=== PATIENT | male | born 1965 | race Caucasian/White ===

== ENCOUNTER 2020-03-20 12:36 | Emergency (ER) | payer OTHER ==
--- NOTE | 2020-03-20 13:04 | ERPHSYRPT ---
- History of Present Illness Time Seen by Provider: 03/20/20 12:50 Source: patient, family Exam Limitations: no limitations Patient Subjective Stated Complaint: fall off ladder on Monday Triage Nursing Assessment: pt to ED c/o R lower back pain after mechanical fall off ladder approx 6 ft high. denies LOC, denies blood thinners. was leaning and ladder tipped underneath him. rates 5/10 pain and worse when changing position. pain does radiates to R leg at times. Physician History: This is a 54-year-old white male who was on a ladder 3 days ago cleaning off his gutters when he fell off the gutters approximately 6 feet onto his back. This occurred 3 days ago. He did not have any loss of consciousness. He denies head neck injury or pain. The patient's pain has not improved. He has been using plain Tylenol. He has no known drug allergies and he takes no chronic pain medicine. He denies abdominal pain. He has had no hematuria. He has no chest pain and he is not short of breath Occurred: days ago (3) Injuries/Pain Location: back, lower, middle Loss of Consciousness: no loss of consciousness Quality: aching Severity of Pain-Max: moderate Severity of Pain-Current: moderate Modifying Factors: Improves With: movement Associated Symptoms (Fall): back pain, No abdominal pain, No chest pain, No extremity injury, No headache, No neck pain Allergies/Adverse Reactions: azithromycin Allergy (Verified 03/20/20 12:51) Hx Tetanus, Diphtheria Vaccination/Date Given: Yes Hx Influenza Vaccination/Date Given: Yes Hx Pneumococcal Vaccination/Date Given: No Immunizations Up to Date: Yes Travel Risk - International Travel Have you traveled outside of the country in past 3 weeks: No - Coronavirus Screening Are you exhibiting any of the following symptoms?: No Close contact with a COVID-19 positive Pt in past 14-21 Days: No - Review of Systems Constitutional: No Symptoms Eyes: No Symptoms Ears, Nose, & Throat: No Symptoms Respiratory: No Symptoms Cardiac: No Symptoms Abdominal/Gastrointestinal: No Symptoms Genitourinary Symptoms: No Symptoms Musculoskeletal: Back Pain, Fall, Injury Skin: No Symptoms Neurological: No Symptoms Psychological: No Symptoms Endocrine: No Symptoms Hematologic/Lymphatic: No Symptoms Immunological/Allergic: No Symptoms All Other Systems: Reviewed and Negative - Past Medical History Pertinent Past Medical History: No Neurological History: No Pertinent History ENT History: No Pertinent History Cardiac History: No Pertinent History Respiratory History: No Pertinent History Endocrine Medical History: No Pertinent History Musculoskeletal History: No Pertinent History GI Medical History: No Pertinent History History: No Pertinent History Psycho-Social History: No Pertinent History Male Reproductive Disorders: No Pertinent History - Past Surgical History Past Surgical History: Yes Neuro Surgical History: No Pertinent History Cardiac: No Pertinent History Respiratory: No Pertinent History Gastrointestinal: No Pertinent History Genitourinary: No Pertinent History Musculoskeletal: Orthopedic Surgery Male Surgical History: No Pertinent History Other Surgical History: R arm x 2. L knee replacement - Social History Smoking Status: Never smoker Exposure to second hand smoke: No Drug Use: none Patient Lives Alone: No - Nursing Vital Signs Nursing Vital Signs: Initial Vital Signs Pulse Rate 66 03/20/20 13:41 Respiratory Rate 16 03/20/20 13:41 Blood Pressure 120/80 03/20/20 13:41 O2 Sat by Pulse Oximetry 93 L 03/20/20 13:41 Pain Scale Pain Intensity 0 - [place]indy Coma Score Best Eye Response ([place]): (4) open spontaneously Best Verbal Response ([place]): (5) oriented Best Motor Response ([place]): (6) obeys commands [place] Total: 15 - Physical Exam General Appearance: no apparent distress, alert Head Injury: no evidence of injury Eye Exam: PERRL/EOMI ENT Exam: airway nml, nml ext.inspection, hearing grossly normal Neck Exam: supple, trachea midline, full range of motion, normal alignment, normal inspection Respiratory/Chest Exam: normal breath sounds, No chest tenderness, No respiratory distress, No ecchymosis, No crepitus Cardiovascular Exam: normal heart sounds, regular rate/rhythm Gastrointestinal Exam: soft, normal bowel sounds, No tenderness, No guarding, No rebound Back Exam: normal inspection, normal range of motion, muscle spasm, No CVA tenderness, No vertebral tenderness Extremity Exam: normal inspection, normal range of motion, pelvis stable Neurologic Exam: alert, oriented x 3, cooperative, wrapper caser II-XII nml as tested, normal mood/affect, nml cerebellar function, sensation nml Skin Exam: normal color, warm, dry SpO2 Interpretation: normal O2 Delivery: Room Air - Course Nursing assessment & vital signs reviewed: Yes Ordered Tests: Active Orders 24 hr Category Date Time Status LUMBAR SPINE W/O [CT] Stat Exams 03/20/20 13:05 Completed THORACIC SPINE W/O CONTRAST [CT] Stat Exams 03/20/20 13:05 Completed - Progress Progress: unchanged, pain not gone completely, re-examined Progress Note: 03/20/20 13:55 CAT scan of the thoracic spine shows no acute compression fracture or subluxation. CAT scan of the lumbar spine shows no acute compression fracture or subluxation. Counseled pt/family regarding: diagnosis, need for follow-up, rad results - Departure Departure Disposition: Home Clinical Impression: Fall with injury, Back pain Condition: Stable Critical Care Time: No Referrals: [facility] [Primary Care Provider] - Additional Instructions: Add ibuprofen 600 mg orally with food if not allergic 3 times a day for 5 days. Follow-up with your primary care physician for persistent pain or worsening pain. Prescriptions: Oxycodone HCl/Acetaminophen [Percocet 5-325 mg Tablet] 1 each PO Q8H PRN PRN #10 tablet MDD 3 PRN Reason: Pain Cyclobenzaprine HCl 10 mg [Cyclobenzaprine 10 MG] 10 mg PO TID #10 tablet
--- NOTE | 2020-03-20 13:45 | XRAY ---
Indication: Pain following fall from ladder. Multiple contiguous axial images obtained through the lumbar spine. Sagittal and coronal reformatted images obtained. Comparison: None CT thoracic spine reported separately. Axial images negative for acute fracture, suspicious bony lesions, or spinal canal stenosis. Minimal multilevel anterior endplate spurring. Disks are grossly unremarkable. Facets are symmetric. Sagittal and coronal reformatted images demonstrates normal lumbar alignment with vertebral body heights/disc spaces maintained. No acute compression fracture or subluxation. Visualized noncontrasted soft tissues demonstrates nonobstructing right upper renal punctate calculus/calcification and 1.8 cm right mid renal cyst cortical cyst. Impression: 1. Minimal multilevel endplate spurring, nonobstructing right renal punctate calculus/calcification, and right renal cyst. 2. Remaining CT lumbar spine is negative.
--- NOTE | 2020-03-20 13:46 | XRAY ---
Indication: Pain following fall from ladder. Multiple contiguous axial images obtained through the thoracic spine. Sagittal and coronal reformatted images obtained. Comparison: None Axial images negative for acute fracture, suspicious bony lesions, or spinal canal stenosis. Minimal multilevel anterior endplate spurring. Sagittal and coronal reformatted images demonstrates normal thoracic alignment with vertebral body heights/disc spaces maintained. Tiny multilevel mid to lower thoracic Schmorl nodes. No acute compression fracture or subluxation. Visualized noncontrasted soft tissues unremarkable with incidental subcarinal/right perihilar calcified nodes and hepatic/splenic calcified granulomas. CT lumbar spine reported separately. Impression: 1. Minimal multilevel endplate spurring, tiny multilevel Schmorl nodes, and old granulomatous disease. 2. Remaining CT thoracic spine is negative.
[2020-03-20] MEDS ORDERED: ZOFRAN ODT 4 MG PO ONE (13:59)
[2020-03-20] MEDS ORDERED: Hydromorphone 1 mg/ml Injection IM ONE (13:59)
[2020-03-20] MEDS ORDERED: TORAdol 30 mg Injection IM ONE (13:59)
[2020-03-20] MEDS ORDERED: TORAdol 30 mg Injection ONE ×2 (14:04→14:11)
[2020-03-20] MEDS ORDERED: ZOFRAN ODT 4 MG ONE (14:04)
[2020-03-20] MEDS ORDERED: Hydromorphone 1 mg/ml Injection ONE (14:05)
[2020-03-20 14:25] VITALS: BP 125/92; PULSE 68; O2SAT 94
== END 2020-03-20 14:35 | disposition home or self-care (01) ==
LOC: ED 12:36
DX: M54.5 Low back pain (principal); M54.6 Pain in thoracic spine; W11.XXXA Fall on and from ladder, initial encounter; Y93.89 Activity, other specified; Y92.89 Other specified places as the place of occurrence of the external cause; Z96.652 Presence of left artificial knee joint
CPT/HCPCS: 72128; 72131; 96372; 99284; J1170; J1885; Q0162

== ENCOUNTER 2020-06-11 03:25 | Emergency (ER) | payer OTHER ==
[2020-06-11] MEDS ORDERED: Sodium Chloride 0.9% 1000 ML 1,000 ML ONE (03:47)
[2020-06-11] MEDS ORDERED: Sodium Chloride 0.9% 1000 ML 1,000 ML IV STA (03:48)
[2020-06-11] MEDS ORDERED: Zofran 4 MG/2 ML VIAL IV ONE (04:01)
[2020-06-11] MEDS ORDERED: Reglan 10 MG/2 ML IV ONE (04:06)
[2020-06-11] MEDS ORDERED: Zofran 4 MG/2 ML VIAL ONE (04:06)
[2020-06-11] MEDS ORDERED: BENADRYL 50 MG/ML IV ONE (04:06)
[2020-06-11] MEDS ORDERED: TORAdol 30 mg Injection IV ONE (04:06)
[2020-06-11] MEDS ORDERED: TORAdol 30 mg Injection ONE (04:06)
[2020-06-11] MEDS ORDERED: BENADRYL 50 MG/ML ONE (04:06)
[2020-06-11] MEDS ORDERED: Reglan 10 MG/2 ML ONE (04:06)
--- NOTE | 2020-06-11 04:08 | ERPHSYRPT ---
- History of Present Illness Time Seen by Provider: 06/11/20 03:59 Source: patient Exam Limitations: no limitations Patient Subjective Stated Complaint: headache, nausea, body aches, temp, decreased urine output Triage Nursing Assessment: Pt c/o headache, nausea, body aches, temp off and on and decreased urine output. Pt started feeling bad on 06/04/20 and got tested, pt was called on 06/08/20 and covid test was positive. Lungs clear, heart tones reg, abd soft with active bs x4 quad. Pt denies any vomiting or diarrhea, pt denies chest pain or sob. Allergies/Adverse Reactions: azithromycin Allergy (Verified 06/11/20 03:44) Home Medications: Promethazine HCl 12.5 mg PO Q6H PRN PRN 06/11/20 [History] Hx Tetanus, Diphtheria Vaccination/Date Given: Yes Hx Influenza Vaccination/Date Given: No Hx Pneumococcal Vaccination/Date Given: No Immunizations Up to Date: Yes Travel Risk - International Travel Have you traveled outside of the country in past 3 weeks: No - Coronavirus Screening Are you exhibiting any of the following symptoms?: Yes Symptoms: Fever, Headaches/Body Aches/Fatigue Close contact with a COVID-19 positive Pt in past 14-21 Days: Yes - Past Medical History Pertinent Past Medical History: No Neurological History: No Pertinent History ENT History: No Pertinent History Cardiac History: No Pertinent History Respiratory History: No Pertinent History Endocrine Medical History: No Pertinent History Musculoskeletal History: No Pertinent History GI Medical History: No Pertinent History History: No Pertinent History Psycho-Social History: No Pertinent History Male Reproductive Disorders: No Pertinent History - Past Surgical History Past Surgical History: Yes Neuro Surgical History: No Pertinent History Cardiac: No Pertinent History Respiratory: No Pertinent History Gastrointestinal: No Pertinent History Genitourinary: No Pertinent History Musculoskeletal: Orthopedic Surgery Male Surgical History: No Pertinent History Other Surgical History: R arm x 2. L knee replacement - Social History Smoking Status: Never smoker Exposure to second hand smoke: No Drug Use: none Patient Lives Alone: No - Nursing Vital Signs Nursing Vital Signs: Initial Vital Signs Temperature 98.2 F 06/11/20 03:37 Pulse Rate 84 06/11/20 03:37 Respiratory Rate 18 06/11/20 03:37 Blood Pressure 133/103 06/11/20 03:37 O2 Sat by Pulse Oximetry 96 06/11/20 03:37 Pain Scale Pain Intensity 3 - Physical Exam SpO2: 96 Ordered Tests: Active Orders 24 hr Category Date Time Status CBC W DIFF Stat Lab 06/11/20 03:50 Completed CMP Stat Lab 06/11/20 03:50 Completed Lactic Acid Stat Lab 06/11/20 04:00 Completed Manual Differential NC Stat Lab 06/11/20 03:50 Completed Medication Summary Discontinued Medications Generic Name Dose Route Start Last Admin Trade Name Gregorio PRN Reason Stop Dose Admin Diphenhydramine HCl 25 mg 06/11/20 04:06 06/11/20 04:11 Benadryl 50 Mg/Ml IV 06/11/20 04:07 25 mg STAT ONE Administration Diphenhydramine HCl Confirm 06/11/20 04:06 Benadryl 50 Mg/Ml Administered 06/11/20 04:07 Dose 50 mg .ROUTE .STK-MED ONE Sodium Chloride Confirm 06/11/20 03:47 Sodium Chloride 0.9% 1000 Ml Administered 06/11/20 03:48 Dose 1,000 mls @ ud .ROUTE .STK-MED ONE Sodium Chloride 1,000 mls @ 999 mls/hr 06/11/20 03:48 06/11/20 03:50 Sodium Chloride 0.9% 1000 Ml IV 06/11/20 04:48 999 mls/hr .Q1H1M STA Administration Ketorolac Tromethamine 30 mg 06/11/20 04:06 06/11/20 04:10 Toradol 30 Mg Injection IV 06/11/20 04:07 30 mg STAT ONE Administration Ketorolac Tromethamine Confirm 06/11/20 04:06 Toradol 30 Mg Injection Administered 06/11/20 04:07 Dose 30 mg .ROUTE .STK-MED ONE Metoclopramide HCl 10 mg 06/11/20 04:06 06/11/20 04:10 Reglan 10 Mg/2 Ml IV 06/11/20 04:07 10 mg STAT ONE Administration Metoclopramide HCl Confirm 06/11/20 04:06 Reglan 10 Mg/2 Ml Administered 06/11/20 04:07 Dose 10 mg .ROUTE .STK-MED ONE Ondansetron HCl 4 mg 06/11/20 04:01 06/11/20 04:11 Zofran 4 Mg/2 Ml Vial IV 06/11/20 04:02 4 mg STAT ONE Administration Ondansetron HCl Confirm 06/11/20 04:06 Zofran 4 Mg/2 Ml Vial Administered 06/11/20 04:07 Dose 4 mg .ROUTE .STK-MED ONE Lab/Rad Data: Laboratory Result Diagrams 06/11/20 03:50 06/11/20 03:50 Laboratory Results 06/11/20 06/11/20 06/11/20 Range/Units 04:00 03:50 03:50 WBC 4.4 (4.0-10.5) K/mm3 RBC 5.40 (4.1-5.6) M/mm3 Hgb 15.7 (12.5-18.0) gm/dl Hct 46.7 (42-50) % MCV 86.5 (78-100) fl MCH 29.1 (26-32) pg MCHC 33.6 (32-36) g/dl RDW 12.8 (11.5-14.0) % Plt Count 138 L (150-450) K/mm3 MPV 10.6 (7.5-11.0) fl Absolute Granulocytes 2.13 (1.4-6.9) Sodium 139 (137-145) mmol/L Potassium 3.5 (3.5-5.1) mmol/L Chloride 106 (98-107) mmol/L Carbon Dioxide 25 (22-30) mmol/L Anion Gap 11.0 (5-15) MEQ/L BUN 12 (9-20) mg/dL Creatinine 1.09 (0.66-1.25) mg/dL Estimated GFR > 60.0 ML/MIN Glucose 92 (74-106) mg/dL Lactic Acid 1.0 (0.4-2.0) Calcium 8.4 (8.4-10.2) mg/dL Total Bilirubin 0.60 (0.2-1.3) mg/dL AST 30 (17-59) U/L ALT 23 (0-50) U/L Alkaline Phosphatase 67 (38-126) U/L Serum Total Protein 7.0 (6.3-8.2) g/dL Albumin 3.9 (3.5-5.0) g/dL - Progress Progress: improved, re-examined Progress Note: 06/11/20 05:26 Patient is feeling better and headache is almost completely resolved. Blood Culture(s) Obtained: No Antibiotics given: No Counseled pt/family regarding: lab results, diagnosis, need for follow-up - Departure Departure Disposition: Home Clinical Impression: Viral syndrome Headache Qualifiers: Headache type: unspecified Headache chronicity pattern: acute headache Intractability: not intractable Qualified Code(s): R51.9 - Headache, unspecified Condition: Stable Critical Care Time: No Referrals: NONI REED NP [Primary Care Provider] - (1-2 days for reevaluation) Instructions: Headache, Adult (DC) Additional Instructions: Keep yourself well-hydrated. Take Tylenol as needed for headache. Follow-up with your primary care for reevaluation. Take Zofran as needed for nausea vomiting. Return to ER for worsening nausea or if develop vomiting, headache, blurry vision, numbness tingling or focal weakness. Prescriptions: Ondansetron ODT 4 MG [Zofran Odt 4 mg] 4 mg PO Q6H PRN PRN #10 tab.rapdis PRN Reason: Vomiting
[2020-06-11 04:16] LABS: Absolute Neutrophil Ct (ANC) 2.13 (1.4-6.9); Hematocrit 46.7 % (42-50); Hemoglobin 15.7 gm/dl (12.5-18.0); Mean Cell Volume 86.5 fl (78-100); Mean Corpuscular Hemoglobin 29.1 pg (26-32); Mean Corpuscular Hgb Concent. 33.6 g/dl (32-36); Mean Platelet Volume 10.6 fl (7.5-11.0); Platelet Count 138 K/mm3 (150-450); Red Cell Distribution Width 12.8 % (11.5-14.0); White Blood Count 4.4 K/mm3 (4.0-10.5)
[2020-06-11 04:20] LABS: ALBUMIN 3.9 g/dL (3.5-5.0); ALKALINE PHOSPHATASE 67 U/L (38-126); BLOOD UREA NITROGEN 12 mg/dL (9-20); CHLORIDE 106 mmol/L (98-107); Calcium 8.4 mg/dL (8.4-10.2); Carbon Dioxide 25 mmol/L (22-30); Creatinine 1 1.09 mg/dL (0.66-1.25); EST GLOMERULAR FILTRATION RATE > 60.0 ML/MIN; Glucose 92 mg/dL (74-106); Potassium 3.5 mmol/L (3.5-5.1); SGOT/AST 30 U/L (17-59); SGPT/ALT 23 U/L (0-50); SODIUM 139 mmol/L (137-145)
[2020-06-11 05:12] VITALS: BP 119/88
[2020-06-11 05:26] VITALS: PULSE 75
[2020-06-11 05:29] VITALS: O2SAT 96
[2020-06-11 10:54] LABS: BAND 1 % (0.0-2.0); Lymphocytes 24 % (24-44); Monocyte 9 % (0.0-12.0); Neutrophils 66 % (36.-66.); Platelet Estimate DECREASED (NORMAL); Total Cells Counted 100
== END 2020-06-11 05:31 | disposition home or self-care (01) ==
LOC: ED 03:25
DX: B34.9 Viral infection, unspecified (principal); R51.9 Headache, unspecified; R50.9 Fever, unspecified; Z20.828 Contact with and (suspected) exposure to other viral communicable diseases
CPT/HCPCS: 36000; 36415; 80053; 83605; 85025; 96360; 96374; 96375; 99284; J1200; J1885; J2405